=== PATIENT | male | born 1980 | race Caucasian/White ===

== ENCOUNTER 2016-11-06 06:58 | Day surgery (SDC) | payer OTHER ==
[2016-11-05 14:31] VITALS: BP 141/88
[2016-11-05 15:02] LABS: HEMOGLOBIN 16.9 g/dL (13.7-18.0); WHITE BLOOD COUNT 9.2 x10^3/uL (3.4-10)
[~2016-11-06] VITALS: Ht 180.3 cm; Wt 107.0 kg
[~2016-11-06 06:58] MED LIST: None per pt
[2016-11-06] MEDS ORDERED: LACTATED RINGERS 1,000 ML IV SCH (07:43)
[2016-11-06] MEDS ORDERED: LIDOCAINE 1%, 2ML ONE (07:47)
[2016-11-06] MEDS ORDERED: BUPIVACAINE/PF 0.5% ONE (07:59)
[2016-11-06] MEDS ORDERED: EPINEPHRINE 1 MG/ML, 1ML ONE (07:59)
[2016-11-06] MEDS ORDERED: LIDOCAINE 1%, 2ML SQ PRN (08:00)
[2016-11-06] MEDS ORDERED: MIDAZOLAM 1 MG/ML, 2ML ONE (08:13)
[2016-11-06] MEDS ORDERED: FENTANYL PF 100 MCG/2ML ONE ×3 (08:13→09:48)
[2016-11-06] MEDS ORDERED: DEXAMETHASONE 4 MG/ML, 5ML ONE (08:53)
[2016-11-06] MEDS ORDERED: ONDANSETRON 2MG/ML, 2ML ONE (08:53)
[2016-11-06] MEDS ORDERED: ROCURONIUM 10 MG/ML ONE (08:53)
[2016-11-06] MEDS ORDERED: PROPOFOL 10 MG/ML, 20ML ONE (08:53)
[2016-11-06] MEDS ORDERED: KETOROLAC 30 MG/1 ML ONE (08:53)
[2016-11-06] MEDS ORDERED: CEFAZOLIN 1,000 MG ONE (08:53)
[2016-11-06] MEDS ORDERED: BUPIVACAINE/PF-EPI 0.5% 1:200K INFIL ONE (09:47)
[2016-11-06] MEDS ORDERED: OXYcodone 5 MG/5 ML ORAL.SOL UDC ONE (09:48)
[2016-11-06] MEDS ORDERED: HYDROmorphone 1 MG/ML, 1ML ONE (09:50)
[2016-11-06] MEDS ORDERED: PROMETHAZINE 25 MG/ML, 1ML IV PRN (10:00)
[2016-11-06] MEDS ORDERED: LABETALOL 5MG/ML, 20ML IV PRN (10:00)
[2016-11-06] MEDS ORDERED: HYDROmorphone 1 MG/ML, 1ML IV PRN (10:00)
[2016-11-06] MEDS ORDERED: ONDANSETRON 2MG/ML, 2ML IVPush PRN (10:00)
[2016-11-06] MEDS ORDERED: MEPERIDINE/PF 25MG/0.5ML IVPush PRN (10:00)
[2016-11-06] MEDS ORDERED: OXYcodone 5 MG/5 ML ORAL.SOL UDC PO PRN (10:00)
[2016-11-06] MEDS ORDERED: FENTANYL PF 100 MCG/2ML IV PRN (10:00)
== END 2016-11-06 11:44 | disposition home or self-care (01) ==
LOC: OUT 06:58
PROVIDERS: ATTEND Surgery
DX: K42.9 Umbilical hernia without obstruction or gangrene (principal); G43.909 Migraine, unspecified, not intractable, without status migrainosus; Z98.890 Other specified postprocedural states
CPT/HCPCS: 36415; 49585; 85025; J0171; J0690; J1100; J1885; J2250; J2405; J2704; J3010; J3490; J7120